=== PATIENT | male | born 1955 | race Caucasian/White ===

== ENCOUNTER 2019-08-12 14:27 | Inpatient (IN) | payer BC, OTHER ==
[~2019-08-12] VITALS: Ht 177.8 cm; Wt 65.4 kg
[~2019-08-12 14:27] MED LIST: ADULT LOW DOSE81 MG PO; AMLODIPINE BESYL5 MG PO; DIOVAN HCT 1601 EAC1 PO; TOPROL XL100 MG PO; TOPROL XL50 MG PO
[2019-08-12 14:29] VITALS: BP 157/100
[2019-08-12 15:16] LABS: ABSOLUTE NEUTROPHILS 16.2 thou/uL (1.4-8.2); BASOPHILS 0.3 % (0.0-2.0); HEMATOCRIT 38.6 % (42.0-52.0); LYMPHOCYTES 3.3 % (24.0-44.0); MCH 36.7 pg (26.0-34.0); MCHC 33.6 g/dL (28.0-37.0); MCV 109.3 fL (80.0-100.0); MONOCYTES 5.7 % (1.0-8.0); PLATELET COUNT 230 thou/uL (150-400); POLYS 90.7 % (36.0-66.0); RBC 3.53 mil/uL (4.50-6.00); RDW 14.7 % (10.5-14.5); WBC 17.9 thou/uL (4.0-11.0)
[2019-08-12 15:20] LABS: ANION GAP 21 mmol/L (7-16); BUN 43 mg/dL (7-18); CALCIUM 9.8 mg/dL (8.5-10.1); CHLORIDE 101 mmol/L (98-107); CO2 19 mmol/L (21-32); CREATININE 1.9 mg/dL (0.7-1.3); GLUCOSE 92 mg/dL (74-106); POTASSIUM 3.8 mmol/L (3.5-5.1); SODIUM 141 mmol/L (136-145)
[2019-08-12 15:34] LABS: TROPONIN-I <0.06 ng/mL (<0.06)
[2019-08-12 17:33] LABS: MACROCYTES 1+
--- NOTE | 2019-08-12 19:07 | NUR ---
REPORT TAKEN FROM YARELIS WINERY CELLAR HAND AT THIS TIME.
[2019-08-12 19:34] LABS: FOLIC ACID 2.2 ng/mL (8.6-58.9)
[2019-08-12 21:24] VITALS: BP 140/98
--- NOTE | 2019-08-12 21:24 | NUR ---
HANDOFF TOOL PRINTED TO 3WEST AT THIS TIME
--- NOTE | 2019-08-12 21:51 | NUR ---
PT REPORT WAS GIVEN AT THIS TIME TO 3W NURSE, OWEN. PT WAS BROUGHT UP TO FLOOR AFTER REPORT WAS GIVEN. PT DEPARTED ER AT 7145.
[2019-08-12 22:29] VITALS: BP 174/102
--- NOTE | 2019-08-12 23:55 | NUR ---
Admission history and assessments completed. Care plan initiated.
[2019-08-13] VITALS (10 sets, daily range): BP systolic 121–197; BP diastolic 70–112
--- NOTE | 2019-08-13 03:54 | NUR ---
Patient making slow progress towards outcome goals. Vital signs and rhythm stable. CIWA 2-9 treated as indicated. No void since arrival to floor, bladder palpated, soft and is not distended. Patient denies urge to void. Bladder scan 156 ml. IVfluids infusing. NPO. Mouth swabs provided.
[2019-08-13 06:11] LABS: HEMATOCRIT 35.4 % (42.0-52.0); HEMOGLOBIN 11.9 gm/dL (14.0-18.0); MCH 37.4 pg (26.0-34.0); MCHC 33.6 g/dL (28.0-37.0); MCV 111.2 fL (80.0-100.0); RBC 3.18 mil/uL (4.50-6.00); RDW 14.6 % (10.5-14.5); WBC 7.9 thou/uL (4.0-11.0)
[2019-08-13 06:38] LABS: ALBUMIN 3.1 g/dL (3.4-5.0); CALCIUM 8.4 mg/dL (8.5-10.1); CREATININE 1.3 mg/dL (0.7-1.3); MAGNESIUM 1.8 mg/dL (1.8-2.4); PHOSPHORUS 3.5 mg/dL (2.5-4.9); POTASSIUM 3.7 mmol/L (3.5-5.1)
[2019-08-13 08:59] LABS: URINE BLOOD TRACE (Negative); URINE CLARITY CLEAR; URINE COLOR YELLOW; URINE GLUCOSE-RANDOM* NEGATIVE (Negative); URINE KETONES 1+ (Negative); URINE LEUKOCYTES-REFLEX NEGATIVE (Negative); URINE NITRITE-REFLEX NEGATIVE (Negative); URINE PROTEIN (DIPSTICK) NEGATIVE (Negative); URINE SPECIFIC GRAVITY 1.015 (1.005-1.035)
[2019-08-13 09:03] LABS: ICTOTEST (BILI CONFIRMATORY) Negative (Negative); URINE BILIRUBIN NEGATIVE (Negative)
[2019-08-13 09:09] LABS: AMP/METHAMP Negative (Negative); BARBITURATES Negative (Negative); BENZODIAZEPINES Negative (Negative); COCAINE Negative (Negative); METHADONE Negative (Negative); OPIATES Negative (Negative); PCP Negative (Negative)
--- NOTE | 2019-08-13 10:47 | EKG ---
[address] [address] ELECTROCARDIOGRAM REPORT Name: LORNA DIAZ Room #: 362-P ADM IN M.R.#: [id number] Admission: 08/12/19 Attend Phys: Miller Haddad MD Discharge: Date of : 55 Report #: [id number] THIS REPORT FOR: //name// [facility] ED Test Date: 2019-08-12 Test Time: 14:36:49 Pat Name: LORNA DIAZ Department: Room: 362 P Gender: M Hooker Operator: Malu MADRID RN : 1955 Requested By: Miller Haddad Order Number: [id number] MD: Jarod Acosta Measurements Intervals Lang[place] Rate: 105 P: 50 KS: 105 QRS: 22 QRSD: 93 T: 32 QT: 352 QTc: 466 Interpretive Statements Sinus tachycardia Artifact in lead(s) I,III,aVR,aVL,aVF,V6 Compared to ECG 03/08/2010 10:34:59 Electronically Signed On 08-13-2019 10:47:38 WRAPPER DIPPER by Jarod Acosta [email or web address] <ELECTRONICALLY SIGNED> By: Jarod Acosta MD 08/13/19 1047 1436 1436 Jarod Acosta MD /EPI
--- NOTE | 2019-08-13 16:50 | NUR ---
Assumed care approx. 0700 this AM. CIWA scores remain zero. Q1H neuro checks changed to Q8H per Dr. Haddad. Patient started on regular diet. Patient placed in shoulder immobilizer. Blood pressure uncontrolled until new order given for a onetime dose of an extra 100 mg of metoprolol and 10 mg of amlodipine started daily. Maintenance fluids still infusing per orders. Pt using the urinal to void and bedpan for BM's. Pt slowly progressing toward plan of care goals.
--- NOTE | 2019-08-14 03:25 | NUR ---
Patient making slow progress towards outcome goals. Vital signs and rhythm stable. Oxycodone for pain, right arm immobilizer in placae. IVFluids infusing, urine output lopez, incontinent of urine. Passing large amounts of flatus. No BM. High fall risks. Fall mprecautions in place. CIWA 0-2
[2019-08-14 03:50] VITALS: BP 139/89
[2019-08-14 05:19] LABS: HEMATOCRIT 33.3 % (42.0-52.0); MCH 36.2 pg (26.0-34.0); MCHC 33.2 g/dL (28.0-37.0); MCV 109.2 fL (80.0-100.0); RBC 3.05 mil/uL (4.50-6.00); RDW 14.6 % (10.5-14.5); WBC 8.6 thou/uL (4.0-11.0)
[2019-08-14 05:54] LABS: ALBUMIN 2.6 g/dL (3.4-5.0); CALCIUM 8.3 mg/dL (8.5-10.1); CREATININE 1.2 mg/dL (0.7-1.3); PHOSPHORUS 2.4 mg/dL (2.5-4.9); POTASSIUM 3.3 mmol/L (3.5-5.1); TOTAL PROTEIN 5.6 g/dL (6.4-8.2)
[2019-08-14 07:40] VITALS: BP 153/88
--- NOTE | 2019-08-14 09:36 | HC ---
[facility] [place] [address] [place] [address] CONSULTATION Name: LORNA DIAZ Room #: 362-P ADM IN M.R.#: [id number] Admission: 08/12/19 Attend Phys: Miller Haddad MD Discharge: Date of : 55 Report #: [id number] THIS REPORT FOR: //name// CC: Abram Haddad ATTENDING PHYSICIAN: Dr. Haddad. REASON FOR CONSULTATION: Medical management. HISTORY OF PRESENT ILLNESS: The patient is a 64-year-old gentleman who was admitted through the Emergency Room last night after suffering a fall at home. All the history is obtained by speaking to the ER physician, reviewing the records. The patient reports that he tripped over his dog on the stairs about 6 days ago and fell down about half a flight of stairs. He tried to get up and fell several more times and then ultimately he was unable to get off the floor and was lying there for several days. He was complaining of a lot of pain in his right arm and was unable really to lift it or pull himself up. Eventually, he was able to roll onto his side and crawl over to reach his phone and called EMS and was brought to the Emergency Room. He does report a history of alcohol and says that he drank about 6 ounces of vodka on the day of admission to "cut the pain." PAST MEDICAL HISTORY: Alcohol abuse, hypertension. PAST SURGICAL HISTORY: None. FAMILY HISTORY: Noncontributory. SOCIAL HISTORY: Denies chronic tobacco use. He lives alone. ALLERGIES: PENICILLIN. MEDICATIONS: Diovan/HCTZ, amlodipine, aspirin, Toprol-XL. REVIEW OF SYSTEMS: He denies headache, chest pain, shortness of breath, abdominal pain, nausea, vomiting, diarrhea, constipation, dysuria or syncope. He complains of urinary frequency and pain in his right arm. OBJECTIVE: VITAL SIGNS: Temperature 36.7, pulse 98, respirations 20, blood pressure 164/100, O2 sat 100% on room air. GENERAL: He is awake and alert, in no distress. HEAD AND NECK: Unremarkable. LUNGS: Clear. Chest has significant ecchymoses across the right upper arm spreading over the right chest wall, rib area towards the sternum. HEART: Regular. [facility] [address] [place] [address] CONSULTATION Name: LORNA DIAZ Room #: 362-P [facility] IN M.R.#: [id number] Admission: 08/12/19 Attend Phys: Miller Haddad MD Discharge: Date of : 55 Report #: [id number] ABDOMEN: Soft, normoactive bowel sounds. EXTREMITIES: No edema. He has tenderness in the right upper arm. NEUROLOGIC: He recognizes being in the hospital. He is pleasant, follows commands, in no distress. LABORATORY REVIEW: Hemoglobin 11.9, MCV 111. White count is normal. Creatinine 1.3. CPK was 698. Admission lactase was 3.9. Alcohol level was 67. CT of the right arm reveals a fracture of the humeral head. CT of the chest reveals soft tissue hematoma on the right chest wall, but no rib fractures. CT head was unremarkable. ASSESSMENT: 1. Alcohol intoxication. 2. Rhabdomyolysis. 3. Acute kidney injury due to the above. 4. Macrocytic anemia. 5. Acute right humerus fracture, closed. 6. Hematoma of the right chest wall. 7. Hypertension. 8. Accidental fall. 9. Alcohol abuse. 10. Mild protein-calorie malnutrition, albumin 3.1. 11. Lactic acidosis due to rhabdomyolysis. PLAN: Continue his IV fluids and note that he has standing orders for alcohol withdrawal protocol. Orthopedics is to assess his humeral fracture given the extent of hematoma and just use SCDs for DVT prophylaxis at this point. I will continue to follow his hospital stay with you. <ELECTRONICALLY SIGNED> By: Enoc Spencer MD 08/14/19 0936 0801 0829 Enoc Spencer MD /nt
[2019-08-14 11:34] VITALS: BP 170/100
--- NOTE | 2019-08-14 15:37 | NUR ---
ASSUMED CARE OF PT AT 0700. PT ALERT AND ORIENTED, C/O RIGHT ARM/SHOULDER PAIN. OTHERWISE SHOWING NO SIGNS OF ETOH WITHDRAWAL AT THIS TIME. USING URINAL. HYPERTENSIVE - BP MEDS ADJUSTED BY PHYSICIAN. CALLS OUT APPROPRIATELY. CONCERNED ABOUT HIS DOG THAT WAS LEFT AT HOME - [facility] CALLED - THEY ARE HOLDING PATIENT'S DOG, "CLOVER" AND ASKING FOR PATIENT TO CALL THEM WHEN HE IS READY TO BE RELEASED - ANIMAL CONTROL NUMBER GIVEN TO PATIENT. WILL CONT TO MONITOR.
[2019-08-14 16:40] VITALS: BP 144/82
[2019-08-14 19:14] VITALS: BP 169/84
--- NOTE | 2019-08-15 03:23 | NUR ---
Patient making slow progress towards outcome goals. Vital signs and rhythm stable. Good oral fluid intake. Urine output improving. High fall risks, fall precautions in place. CIWA 0-2. Right extremity immobilizer on. Good pain control with oxycodone.
[2019-08-15 03:59] VITALS: BP 145/82
[2019-08-15 05:07] LABS: HEMATOCRIT 35.9 % (42.0-52.0); HEMOGLOBIN 11.9 gm/dL (14.0-18.0); MCH 37.2 pg (26.0-34.0); MCHC 33.1 g/dL (28.0-37.0); MCV 112.5 fL (80.0-100.0); RBC 3.19 mil/uL (4.50-6.00); RDW 14.8 % (10.5-14.5); WBC 8.1 thou/uL (4.0-11.0)
[2019-08-15 05:24] LABS: CALCIUM 8.5 mg/dL (8.5-10.1); POTASSIUM 3.2 mmol/L (3.5-5.1)
[2019-08-15 08:03] VITALS: BP 141/91
[2019-08-15 08:31] VITALS: BP 141/91
[2019-08-15 11:29] VITALS: BP 152/77
--- NOTE | 2019-08-15 12:35 | H ---
[facility] [place] [address] [place] [address] HISTORY AND PHYSICAL Name: LORNA DIAZ Room #: 362-P ADM IN M.R.#: [id number] Admission: 08/12/19 Attend Phys: Miller Haddad MD Discharge: Date of : 55 Report #: [id number] THIS REPORT FOR: //name// CC: Abram Haddad DATE OF SERVICE: 08/12/2019 ATTENDING PHYSICIAN: Dr. Haddad. CONSULTING PHYSICIAN: 1. Orthopedic Surgery. 2. Dr. Abram Bragg, PCP. CHIEF COMPLAINT: Level 2 fall on Thursday per patient. HISTORY OF PRESENT ILLNESS: The patient is a 64-year-old gentleman, who reports that he fell on Thursday. He is very elusive in his answering questions and somewhat difficult to get a straightforward story from, but the best I can tell, the patient fell on Thursday and was possibly on the ground for 2 days until Thursday, at which point he was able to get himself off the ground. He had trouble getting around after that and was experiencing a lot of pain. Although he was able to get off the ground on Thursday, reports that he was not able to seek help because his phone was upstairs in his bedroom and the phone was . He was eventually able to muster up enough strength to crawl to his room and called EMS. The patient reports that on Thursday, he fell down approximately 5 stairs because his dog yanked him down. Again it is difficult to obtain a history from this patient. He does endorse pain in his right shoulder and right chest, but denies pain elsewhere. He denied loss of consciousness. PAST MEDICAL HISTORY: 1. Hypertension. 2. The patient does endorse a history of alcoholism. PAST SURGICAL HISTORY: Tonsils and adenoids. SOCIAL HISTORY: The patient endorses drinking several 1.5 ounces drinks of vodka per day. Denies tobacco use. Denies recreational drug use. 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 FAMILY HISTORY: Father had an MO. Denies cancers or coagulopathies within his family. REVIEW OF SYSTEMS: [facility] [address] [place] [address] HISTORY AND PHYSICAL Name: LORNA DIAZ Room #: 362-P [facility] IN M.R.#: [id number] Admission: 08/12/19 Attend Phys: Miller Haddad MD Discharge: Date of : 55 Report #: [id number] CONSTITUTIONAL: No fever. No chills. HEENT: Denies blurring of vision, double vision, headaches, hearing loss, sinus drainage or sore throat. Denies blurring of vision, double vision, headaches, hearing loss, sinus drainage or sore throat. CARDIOVASCULAR: Denies chest pain, palpitations, orthopnea or paroxysmal nocturnal dyspnea. RESPIRATORY: Denies cough, wheezing, hemoptysis, or shortness of air. GASTROINTESTINAL: No nausea. No vomiting. No diarrhea. No Heartburn. No nausea. No vomiting. No diarrhea. No Heartburn. GENITOURINARY: Denies dysuria or hematuria or kidney stones. No urinary frequency, urgency or incontinence. Denies dysuria or hematuria or kidney stones. No urinary frequency, urgency or incontinence. MUSCULOSKELETAL: See above and below. NEUROLOGICAL: Denies tremor, stroke or seizure. Denies tremor, stroke or seizure. HEMATOLOGIC/LYMPHATICS: Denies easy bruising, easy bleeding or enlarged lymph nodes. SKIN: See above and below. ENDOCRINE: No heat or cold intolerance PSYCHIATRIC: Denies depression, anxiety, or schizophrenia. PHYSICAL EXAMINATION: VITAL SIGNS: Temperature 37.3, pulse is 115, respiratory rate 16, pulse ox 100%, blood pressure is 157/100. GENERAL: Patient has extreme ecchymosis of his right shoulder and chest. He does have an active tremor, he is alert and oriented. HEENT: PERRLA, EOMI, MMM, NCAT NECK: Supple. No LAD CARDIOVASCULAR: Regular rhythm and rate. Hemodynamically stable. Normal capillary refill. PULMONARY: Right chest is tender to palpation. He has severe ecchymosis on the right shoulder and right chest. ABDOMEN: Soft, nontender to palpation, no guarding, no rigidity, no rebound tenderness, no hernias. EXTREMITIES: Calves soft, nontender, no edema. SKIN: Ecchymosis as above and below. PSYCHIATRIC: Normal mood and affect. NEUROLOGICAL: Grossly intact. CN II-XII grossly intact. MUSCULOSKELETAL: Bilateral lower extremities have 5/5 strength in bilateral lower extremities ankles, knees, hips. Right lower extremity has a painful passive range of motion. Strength is not tested due to known injury. He has 5/5 strength in his right hand. Normal sensation in his right hand. He has a palpable radial pulse. Left upper extremity has 5/5 strength in left shoulder, elbow and wrist and hand chair springer. Normal sensation to light touch in left hand. Right shoulder does have swelling and fullness underlying the skin. LYMPHATICS: No cervical, inguinal, or supraclavicular lymphadenopathy. [facility] [address] [place] [address] HISTORY AND PHYSICAL Name: LORNA DIAZ Room #: 362-P ADM IN M.R.#: [id number] Admission: 08/12/19 Attend Phys: Miller Haddad MD Discharge: Date of : 55 Report #: [id number] LABORATORY DATA: Sodium is 141, potassium 3.8 and creatinine 1.9, lactic acid 3.9, creatinine kinase is 1400. White blood count 17.9, hemoglobin 13, platelets 230. Serum alcohol is 67. RADIOLOGY REPORTS: Right humerus x-ray, impression: Acute comminuted fracture of the right proximal humerus. Right elbow, impression: No acute osseous abnormality at the elbow. CT of the abdomen and pelvis. Impression: 1. No evidence of acute abdominal hemorrhage, mass effect, free air or free fluid. No mass is identified or hemorrhage identified in the liver or spleen. No acute intraabdominal process. 2. A linear calcification along the posteroinferior margin of the liver measures 3.9 cm AP x 3.3 cm transverse x 8 mm in thickness and may represent an old hematoma or other posterior metastatic ovarian. It appears chronic in nature. 3. Soft tissue edema along the anterior right abdominal wall consistent with interstitial hematoma as described on physical exam. Adjacent ribs were normal in appearance without evidence of fracture visualized in the abdominal CT section. CT scan of the chest: Impression: 1. No evidence of acute intrathoracic process. Heart and vessels were normal for the patient's age. Moderate coronary calcifications are present. No evidence of pneumonia, pneumothorax or pleural effusion. 2. Subtle edema and subcutaneous hematoma along the right chest wall without evidence of adjacent rib fracture or dislocation. 3. Comminuted fracture involving the surgical neck of the humerus with impaction and angulation. The femoral head remains centered over the glenoid. Moderate hematoma was present within the shoulder joint and extending along the upper right arm. These findings correlate well with the humerus x-ray obtained earlier this day. Humerus fracture was at the margin of the CT exam and not well visualized. If further evaluation of femoral fracture is required, formal CT scan of the shoulder could be used to better define alignment of the fracture. A CT scan of the C-spine, Impression: 1. No acute bony abnormality. 2. Questionable minimal gas in the cavernous sinus and pituitary region of doubtful clinical significance. This may be from IV. There is no fracture to suggest traumatic origin. [facility] [place] [address] HISTORY AND PHYSICAL Name: LORNA DIAZ Room #: 362-P ADM IN M.R.#: [id number] Admission: 08/12/19 Attend Phys: Miller Haddad MD Discharge: Date of : 55 Report #: [id number] of the head, Impression: No acute process. ASSESSMENT: The patient is a 64-year-old gentleman status post fall down five stairs. 1. Fall down five stairs. 2. Acute alcohol intoxication. 3. Right humerus fracture. 4. Right shoulder hematoma. 5. Right chest wall hematoma and ecchymosis. 6. Alcoholism. 7. Hypoalbuminemia. 8. Renal failure. 9. Hypertension. 10. Leukocytosis. 11. Liver lesion. PLAN: 1. Admit to trauma. 2. Consult orthopedic surgery. Appreciate recommendations. We will keep n.p.o. in part due to alcohol withdrawal concerns and for surgery. 3. Consult primary care physician Dr. Bragg. Appreciate recommendations. 4. We will place in the CCU and place on alcohol withdrawal protocol. 5. IV fluid resuscitation. Trend creatinine. Trend creatinine kinase. Monitor urine output closely. 6. Repeat labs in the morning. 7. DVT prophylaxis when able. <ELECTRONICALLY SIGNED> By: Miller Haddad MD 08/15/19 1235 1853 [id number] Miller Haddad MD /nt
[2019-08-15 15:43] VITALS: BP 107/67
[2019-08-15 19:36] VITALS: BP 157/84
[2019-08-16 04:35] VITALS: BP 132/81
--- NOTE | 2019-08-16 06:32 | NUR ---
Pt, slept intermittently during the night. Pain med given with good relief. Right arm sling in place. Pt. has been assisted to reposition on bed. Up in the recliner chair at . Uses urinal with assist and at times has periods of incontinence. Bed alarm on for safety. Will continue to monitor.
[2019-08-16 07:20] VITALS: BP 135/85
[2019-08-16] MEDS ORDERED: ACETAMINOPHEN325 M1 PO (09:30)
[2019-08-16] MEDS ORDERED: ELIQUIS2.5 MG PO (09:30)
[2019-08-16] MEDS ORDERED: OXYCODONE HCL 55 MG PO (09:30)
[2019-08-16] MEDS ORDERED: MIRALAX17 GM PO (09:31)
[2019-08-16] MEDS ORDERED: SENNA-TIME S T1 EACH PO (09:31)
[2019-08-16] MEDS ORDERED: METOPROLOL SUCC50 MG PO (09:33)
[2019-08-16] MEDS ORDERED: AMLODIPINE BESY10 MG PO (09:33)
[2019-08-16 11:21] VITALS: BP 96/62
--- NOTE | 2019-08-16 13:19 | NUR ---
assessment: CM REVIEWED CHART AND MET WITH PATIENT AT THE BEDSIDE. PT REPORTS HE LIVES AT HOME BY HIMSELF IN A HOUSE. PT REPORTS THAT HE HAS ABOUT 6 STEPS TO ENTER HOME WITH HANDRAILS. PT REPORTS HE AMBULATES INDEPENDENTLY AND DOES NOT HAVE A CANE OF WALKER AT HOME. PT REPORTS HE WAS INDEPEDENT WITH ADLS. PT CURRENTLY HAS ON IMMOBILIZER AND PER PT/OT THEY ARE RECOMMENDING POST ACUTE CARE. CM DISCUSSED WITH PATIENT. HE STATES HE HAS NOT BEEN ANYWHERE BEFORE FOR A SNF STAY. CM DISCUSSED OPTIONS THAT ARE IN NETWORK WITH HIS INSURANCE. PT REPORTS NO PREFERENCE BUT STATED TO HAVE REFERRAL SENT TO [facility] SINCE IT IS CLOSE TO HIS HOME. CM FAXED REFERRAL AND NOTIFIED NOAH IN ADMISSIONS. CM WILL CONTINUE TO FOLLOW AND AWAIT INPUT FROM [facility].
[2019-08-16 15:51] VITALS: BP 125/75
[2019-08-16 19:25] VITALS: BP 98/60
[2019-08-17 03:32] VITALS: BP 128/80
--- NOTE | 2019-08-17 05:51 | NUR ---
PATIENT IS ALERT TO SELF AND SITUATION. PATIENT IS PENDING DISCHARGE TODAY TO REHAB PENDING INSURANCE APPROVAL. PATIENT IS UP TIMES ONE. NO PAIN UNLESS STIMULATED. PATIENTS LBM WAS THE 11TH. PATIENT STRESS INCONTIENT. PATIENT IS ROOM AIR. PATIENT CIWA IS NEGATIVE. PATIENT IS NSR ON TELE. PATIENT IS RESTING COMFORTABLY IN BED. WCM.PATIENT IS PROGRESSING TO GOALS
[2019-08-17 08:08] VITALS: BP 134/78
[2019-08-17 10:30] LABS: HEMATOCRIT 34.9 % (42.0-52.0); HEMOGLOBIN 11.7 gm/dL (14.0-18.0); MCH 36.6 pg (26.0-34.0); MCHC 33.7 g/dL (28.0-37.0); MCV 108.9 fL (80.0-100.0); RBC 3.21 mil/uL (4.50-6.00); RDW 14.7 % (10.5-14.5); WBC 9.5 thou/uL (4.0-11.0)
[2019-08-17 11:18] VITALS: BP 126/76
--- NOTE | 2019-08-17 15:14 | NUR ---
ASSUMED CARE OF PT AT 0700. PT ALERT AND ORIENTED X4, ,FORGETFUL, IN NO ACUTE DISTRESS. IMMOBILIZER IN PLACE. DENIES NEED FOR PAIN MEDICATION AT THIS TIME. UP W/ PHYSICAL THERAPY, AMBULATING AROUND HALLWAY. DISCHARGED TO [facility] AT APPROX 1400.
--- NOTE | 2019-08-17 15:34 | HC ---
[facility] [address] [address] CONSULTATION Name: LORNA DIAZ Room #: 362-P [facility] IN M.R.#: [id number] Admission: 08/12/19 Attend Phys: Miller Haddad MD Discharge: 08/17/19 Date of : 55 Report #: [id number] THIS REPORT FOR: //name// CC: Abram Haddad DATE OF SERVICE: 08/13/2019 ORTHOPEDIC CONSULTATION CHIEF COMPLAINT: Right shoulder pain, status post fall. HISTORY OF PRESENT ILLNESS: The patient is a pleasant 64-year-old gentleman seen today for evaluation of his right shoulder. The patient reports he fell last Thursday after he tripped on the stairs. He reports he was walking down the stairs with his dog and either tripped or was yanked by the dog and fell 5 or 6 stairs. He reports that he was unable to get up afterwards for at least several days and laid there on the stairs. He reports initially there was no pain about his shoulder. His history is somewhat disjointed and elusive and it is difficult to get a full picture of his injury in the past week. At some point, he was able to get upstairs and make a call to EMS and was subsequently brought to [facility] for further evaluation and care. He reports that the police are taking care of his dog. He is unsure of loss of consciousness during this timeframe and it is difficult to obtain a clear history. He currently reports pain in his shoulder and chest as well as swelling and ecchymosis. Denies any pain elsewhere. He reports drinking 2-3 alcoholic beverages a day, typically vodka with 1-1/2 ounce pours. PAST MEDICAL HISTORY: Significant for hypertension. He reports history of alcoholism. PAST SURGICAL HISTORY: Tonsillectomy, adenoidectomy. SOCIAL HISTORY: Daily vodka drinker. Denies tobacco use. Denies recreational drug use. 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 FAMILY HISTORY: Cardiac disease on his father's side. PHYSICAL EXAMINATION: GENERAL: The patient is alert and oriented, answering questions appropriately. VITAL SIGNS: Most recent temperature 36.9, pulse 94, respirations 20, BP 184/112. Examination of the right shoulder girdle compared to the left reveals extensive ecchymosis about the trapezius extending into the anterior chest wall, near midline extending distally down the thorax over the majority of the rib cage. [address] [address] CONSULTATION Name: LORNA DIAZ Room #: 362-P [facility] IN M.R.#: [id number] Admission: 08/12/19 Attend Phys: Miller Haddad MD Discharge: 08/17/19 Date of : 55 Report #: [id number] This also involves the shoulder, arm and proximal forearm. Adfl-si-pyavsaut swelling is noted in the arm and forearm compartments as well as hand. He is able to minimally flex and extend, abduct and adduct his fingers and thumb. He is weak in all planes of motion with all motor tests compared to the opposite side. He reports intact sensation to light touch throughout the arm and the hand. No obvious cellulitis is appreciated, but has more of an appearance of a deep seated ecchymosis. Range of motion and strength are limited due to his fracture and pain of the shoulder. He is able to nearly make a complete fist. Laboratory data was reviewed. A decrease in his white count is noted, elevated BUN and creatinine as well as an elevated lactic acid and creatine kinase. Imaging data of the right upper extremity reveals a comminuted primarily three-part proximal humerus fracture. This is displaced into varus alignment. The glenohumeral joint remains reduced. IMPRESSION: 1. Right 3-part proximal humerus fracture with displacement. 2. Right upper extremity ecchymosis, possible rhabdomyolysis. 3. Alcoholism. 4. Hypertension. PLAN: We reviewed treatment options with the patient. We have discussed his underlying alcohol consumption as relates to his fracture, healing and function. After reviewing potential choices of nonoperative management and immobilization in a sling or shoulder immobilizer versus an attempted open reduction and internal fixation with bone grafting versus an arthroplasty type procedure, the patient at this point is more interested in seeing how he will do with nonoperative management. This is not unreasonable in light of his current medical comorbidities and alcoholism. We can continue to follow with you and see if he develops more of an acute alcohol withdrawal or not that may require further treatment by Dr. Freeman medical physicians. We discussed his shoulder function may demonstrate some stiffness, weakness and/or loss of function following his injury. We discussed potential for arthrosis in the future if needed, we could treat his shoulder with an arthroplasty type alternative if needed. Questions were encouraged, all were answered. The patient reports he has no other friends or family that he wished to discuss this with. We discussed it will likely take quite some time for his ecchymosis and swelling to slowly subside. We have reviewed that gentle hand, wrist and elbow motion is okay, icing may be continued and we will continue to follow with you. At this point, no operative intervention is planned. <ELECTRONICALLY SIGNED> By: Fernando Hernández MD 08/17/19 1534 1108 1217 Fernando Hernández MD /kael
== END 2019-08-17 14:27 | DRG 563 ==
LOC: ER 14:27 → 3W 18:24 → EROBS 18:24 → 3W 22:06
PROVIDERS: Emergency Medicine; Internal Medicine Geriatric Medicine; ADMIT Surgery
PROC: 2W3AXYZ Immobilization of Right Upper Arm using Other Device (ICD-10-PCS; principal; 2019-08-13)
DX: S42.291A Other displaced fracture of upper end of right humerus, initial encounter for closed fracture (principal); M62.82 Rhabdomyolysis; N17.9 Acute kidney failure, unspecified; E44.1 Mild protein-calorie malnutrition; E87.2 Acidosis; S20.211A Contusion of right front wall of thorax, initial encounter; E88.09 Other disorders of plasma-protein metabolism, not elsewhere classified; D72.829 Elevated white blood cell count, unspecified; K76.9 Liver disease, unspecified; I10 Essential (primary) hypertension; Z60.2 Problems related to living alone; F10.229 Alcohol dependence with intoxication, unspecified; S40.011A Contusion of right shoulder, initial encounter; D53.9 Nutritional anemia, unspecified; Z68.20 Body mass index [BMI] 20.0-20.9, adult; Z82.49 Family history of ischemic heart disease and other diseases of the circulatory system; Z79.82 Long term (current) use of aspirin; Z79.899 Other long term (current) drug therapy; Z88.0 Allergy status to penicillin; W10.8XXA Fall (on) (from) other stairs and steps, initial encounter; Y93.89 Activity, other specified; Y92.89 Other specified places as the place of occurrence of the external cause; Y99.8 Other external cause status
CPT/HCPCS: 10879